=== PATIENT | female | born 1995 | race African-American/Black ===

== ENCOUNTER 2018-06-18 22:42 | Emergency (ER) | payer SELFPAY ==
[~2018-06-18] VITALS: Ht 167.6 cm; Wt 62.7 kg
[2018-06-18 23:03] LABS: CULTURE INDICATED? YES; HCG UR SG 1.017 (1.003-1.030); MICROSCOPIC AUTO
[2018-06-19 00:17] VITALS: BP 122/71
== END 2018-06-19 00:19 | disposition home or self-care (01) ==
LOC: ED 06-19 00:13
DX: N30.00 Acute cystitis without hematuria (principal)
CPT/HCPCS: 81001; 81025; 87086; 99283